=== PATIENT | male | born 1995 | race Hispanic/Latino ===

== ENCOUNTER 2019-04-23 10:23 | Emergency (ER) | payer SELFPAY ==
[~2019-04-23] VITALS: Ht 172.7 cm; Wt 94.0 kg
[2019-04-23] MEDS ORDERED: FLEXERIL5 MG PO (10:42)
[2019-04-23] MEDS ORDERED: BUSPIRONE5 MG PO (10:42)
[2019-04-23] MEDS ORDERED: FAMOTIDINE20 M1 PO (10:43)
[2019-04-23] MEDS ORDERED: DICLOFENAC75 MG PO (10:43)
[2019-04-23] MEDS ORDERED: LORAZEPAM0.5 MG PO (10:43)
[2019-04-23 10:55] LABS: HEMATOCRIT 41.9 % (39.0-50.0); HEMOGLOBIN 14.6 g/dl (14.0-18.0); IMMATURE GRANULOCYTES 0.3 % (0.0-5.0); MEAN CELL VOLUME 84.3 fL CALC (80.0-100.0); MEAN CORPUSCULAR HGB 29.4 pG CALC (26.0-32.0); MEAN CORPUSCULAR HGB CONC 34.8 g/L CALC (32.0-36.0); NEUT# 4.85 thou/uL (1.82-7.42); RED BLOOD COUNT 4.97 mill/uL (4.70-6.10); RED CELL DISTRI WIDTH 11.9 % (11.5-15.5)
[2019-04-23 11:08] LABS: ANION GAP 20 (6-22 (CALC)); BUN 13 mg/dL (9-20); BUN/CREATININE RATIO 16 (12-20 (CALC)); CARBON DIOXIDE 22 mmol/l (22-30); CHLORIDE 102 mmol/l (95-108); CREATININE 0.8 mg/dL (0.7-1.3); GFR > 60 ML/MIN (>=60 (CALC)); GFR FOR AFR.AMER. > 60 ML/MIN (>=60 (CALC)); POTASSIUM 4.1 mmol/l (3.5-5.1); SODIUM 139 mmol/l (137-146)
[2019-04-23 13:11] LABS: BARBITURATES NEGATIVE (NEGATIVE); COCAINE NEGATIVE (NEGATIVE); METHADONE NEGATIVE (NEGATIVE); OXCYCODONE NEGATIVE (NEGATIVE); TETRAHYDROCANNABIONOL NEGATIVE (NEGATIVE); TRICYLIC ANTIDEPRESSANTS NEGATIVE (NEGATIVE)
[2019-04-23 13:15] LABS: URINE BILIRUBIN - DIPSTICK NEGATIVE (NEGATIVE); URINE BLOOD DIPSTICK NEGATIVE (NEGATIVE); URINE COLOR YELLOW; URINE GLUCOSE - DIPSTICK NEGATIVE (NEGATIVE); URINE KETONE NEGATIVE (NEGATIVE); URINE LEUK ESTERASE NEGATIVE (NEGATIVE); URINE NITRITE - DIPSTICK NEGATIVE (Negative); URINE PROTEIN - DIPSTICK 100 mg/dL (NEG-TRACE); URINE SPECIFIC GRAVITY 1.025; URINE UROBILINOGEN - DIPSTICK 0.2 E.U./dL (0.2)
[2019-04-23 13:22] LABS: URINE RBC 0-2 RBC/hpf (0-5)
[2019-04-23 13:23] LABS: URINE WBC 0-2 WBC/hpf (0-5)
[2019-04-23 14:56] VITALS: BP 113/66
== END 2019-04-23 15:21 | disposition home or self-care (01) | DRG 313 ==
LOC: EDBD 10:23 → EDSEX 10:23 → ED 10:23
PROVIDERS: Family Medicine
DX: R07.9 Chest pain, unspecified (principal)